=== PATIENT | female | born 1950 | race Caucasian/White ===

== ENCOUNTER 2023-07-18 11:56 | Day surgery (SDC) | payer OTHER, MEDICARE ==
[2023-07-15 13:46] VITALS: BMI 23.2
[2023-07-18] MEDS ORDERED: PROPOFOL 20 ML ONE ×2 (13:23→14:11)
[2023-07-18] MEDS ORDERED: MIDAZOLAM HCL 2 MG/2 ML SINGLE DOSE VIAL ONE ×2 (13:23→14:12)
[2023-07-18] MEDS ORDERED: BUPIVACAINE HCL/PF 2.5 MG/ML - 30 ML VIAL IJ ONE (13:33)
[2023-07-18] MEDS ORDERED: LIDOCAINE HCL 2% JELLY 11 ML TP ONE (14:13)
[2023-07-18] MEDS ORDERED: ceFAZolin SODIUM 1 GM VIAL ONE (14:27)
[2023-07-18] MEDS ORDERED: ONDANSETRON 4 MG/2 ML VIAL ONE ×2 (14:38→15:01)
[2023-07-18] MEDS ORDERED: KETOROLAC TROMETHAMINE 30 MG/1 ML VIAL ONE (14:38)
[2023-07-18] MEDS ORDERED: ACETAMINOPHEN INJECTION 100 ML IVPB ONE (15:01)
[2023-07-18] MEDS ORDERED: PROMETHAZINE HCL 25 MG/1 ML VIAL IVPB PRN (15:18)
[2023-07-18] MEDS ORDERED: oxyCODONE HCL 5 MG TABLET PO PRN ×2 (15:18)
[2023-07-18] MEDS ORDERED: ONDANSETRON 4 MG/2 ML VIAL IVPUSH PRN (15:18)
[2023-07-18] MEDS ORDERED: ACETAMINOPHEN 1000 MG/100 ML BAG IVPB ONE (15:18)
[2023-07-18] MEDS ORDERED: FENTANYL CITRATE/PF 50 MCG/ML VIAL ONE ×2 (15:22→15:43)
[2023-07-18] MEDS ORDERED: LACTATED RINGERS SOLUTION 1,000 ML IV SCH (15:30)
[2023-07-18 16:55] VITALS: TEMP 97.4
[2023-07-18 16:59] VITALS: BP 122/60; PULSE 70; RESP 18
== END 2023-07-18 16:59 | disposition home or self-care (01) ==
LOC: FASU 11:56
PROVIDERS: ATTEND Orthopaedic Surgery
PROC: 0SBD4ZZ Excision of Left Knee Joint, Percutaneous Endoscopic Approach (ICD-10-PCS; 2023-07-18)
PROC: 0SBD4ZZ Excision of Left Knee Joint, Percutaneous Endoscopic Approach (ICD-10-PCS; principal; 2023-07-18 14:43)
DX: S83.282A Other tear of lateral meniscus, current injury, left knee, initial encounter (principal); M65.852 Other synovitis and tenosynovitis, left thigh; S83.8X2A Sprain of other specified parts of left knee, initial encounter; X58.XXXA Exposure to other specified factors, initial encounter; Y92.9 Unspecified place or not applicable; Y93.9 Activity, unspecified
CPT/HCPCS: 94760